=== PATIENT | female | born 2000 | race Caucasian/White ===

== ENCOUNTER 2023-10-16 02:55 | Emergency (ER) | payer OTHER ==
[~2023-10-16] VITALS: Ht 167.6 cm; Wt 81.6 kg
[2023-10-16 03:02] VITALS: BP 100/62; PULSE 81; RESP 16; TEMP 97.8; O2SAT 97
[2023-10-16 03:10] VITALS: O2SAT 98
[2023-10-16 03:29] VITALS: BP 100/62; PULSE 73; RESP 16
[2023-10-16 03:30] VITALS: O2SAT 98
[2023-10-16] MEDS ORDERED: NACL 0.9% 2,000 ML IV ONE (04:15)
== END 2023-10-16 05:17 | disposition home or self-care (01) ==
LOC: MED 02:55
DX: F10.129 Alcohol abuse with intoxication, unspecified (principal); Y90.9 Presence of alcohol in blood, level not specified
CPT/HCPCS: 96360; 99283; J7030